=== PATIENT | female | born 1970 | race African-American/Black ===

== ENCOUNTER 2016-10-29 16:36 | Emergency (ER) | payer MEDICAID ==
[~2016-10-29] VITALS: Ht 170.2 cm; Wt 65.8 kg
[~2016-10-29 16:36] MED LIST: ALBUTEROL SULF8.5 GM INH; ALPRAZOLAM0.25 MG ORAL; ALPRAZOLAM0.5 MG PO; AZITHROMYCIN250 MG PO; GABAPENTIN100 MG ORAL; IBUPROFEN600 MG ORAL; MEDROL DOSEPAK4 MG ORAL; NKM; OFLOXACIN5 ML OT; TRAMADOL HCL50 MG ORAL
[2016-10-29 16:50] VITALS: BP 127/87
[2016-10-29] MEDS ORDERED: ROBAXIN-750750 MG PO (17:14)
[2016-10-29] MEDS ORDERED: IBUPROFEN600 MG ORAL (17:14)
[2016-10-29] MEDS ORDERED: CORTISPORIN EAR10 ML LEFT EAR (17:21)
[2016-10-29 17:26] VITALS: BP 131/88
--- NOTE | 2016-10-29 21:56 | Emergency Room Report ---
History of Present Illness General Chief Complaint: Pain Source: Patient Present Illness HPI The patient is a 46-year-old female presenting with left rib pain which began 2 days prior. The patient states that she was reaching for an object and felt a pulling sensation around the left lower ribs. Pain is described as a 10 out of 10 sharp sensation it is worse with movement such as twisting and reaching with the left hand. Patient denies any prior injury to this area. Pain does not radiate. The patient has tried Motrin at home no relief. Patient denies any other symptoms including hemoptysis, chest pain, shortness of breath, diaphoresis The patient also complains of left ear pain which began 2 days prior. This pain is described as a sharp 10 out of 10 which is intermittent. No radiating pain. Pain worse with touch. Patient denies any changes in hearing or discharge. Allergies: Coded Allergies: No Known Allergies (Unverified , 10/29/16) Patient History Past Medical History: see triage record Pertinent Family History: none Last Menstrual Period: full hysterectomy Reviewed Nursing Documentation: PMH: Agreed, PSxH: Agreed Nursing Documentation-PMH Past Medical History: No Stated History Hx Cardiac Problems: No - full hysterectomy Review of Systems All Other Systems: negative except mentioned in HPI Physical Exam Vital Signs Date Time Temp Pulse Resp B/P Pulse Ox O2 Delivery O2 Flow Rate FiO2 10/29/16 16:50 98.1 61 18 127/87 98 Room Air Sp02 EP Interpretation: reviewed, normal General Appearance: no apparent distress, alert, GCS 15, non-toxic Head: normocephalic, atraumatic Eyes: bilateral eye PERRL, bilateral eye normal inspection ENT: hearing grossly normal, normal pharynx, normal voice, other - Left external auditory canal is erythematous. Tenderness to palpation over the tragus Neck: full range of motion, supple/symm/no masses Respiratory: chest non-tender, lungs clear, normal breath sounds, no accessory muscle use, no wheezing, speaking full sentences Cardiovascular #1: regular rate, rhythm, no edema Gastrointestinal: normal bowel sounds, non tender, soft, non-distended, no guarding, no rebound Musculoskeletal: back normal, gait/station normal, normal range of motion, tender - There is tenderness to palpation over the left anterior mid intercostal muscles Neurologic: alert, oriented x3, responsive, motor strength/tone normal, sensory intact, speech normal Psychiatric: judgement/insight normal, memory normal, mood/affect normal, no suicidal/homicidal ideation Skin: normal color, no rash, warm/dry, well hydrated Lymphatic: no adenopathy Medical Decision Making PA Attestation Dr. Lobo is my supervising physician. Patient management was discussed with my supervising physician Diagnostic Impression: Primary Impression: Otitis externa of left ear Additional Impression: Muscle strain ER Course The patient is a 46-year-old female presenting with left rib pain which began 2 days prior. Ddx considered include but not limited to sprain/strain, fracture, contusion, muscle spasm Differential diagnosis include but not limited to otitis externa, otitis media, mastoiditis, sinusitis, pharyngitis Physical exam: Vitals within normal limits. No apparent distress HEENT: There is tenderness to palpation over the left tragus. External auditory canal is erythematous. Tympanic membrane is nonerythematous. No bulging There is tenderness to palpation over the left anterior mid intercostal muscles Normal breath sounds. No obvious deformity. No ecchymosis The patient will be discharged home with a prescription for Motrin and Robaxin. Cortisporin will be given for otitis externa. ER precautions are given Last Vital Signs Date Time Temp Pulse Resp B/P Pulse Ox O2 Delivery O2 Flow Rate FiO2 10/29/16 17:26 68 16 131/88 100 Room Air 10/29/16 16:50 98.1 Status: improved Disposition: HOME, SELF-CARE Condition: Improved Scripts Neomycin/Polymyxin B Sulf/Hc* (CORTISPORIN EAR SOLUTION*) 10 Ml Solution 4 DROP LEFT EAR QID, #10 ML 0 Refills Prov: TERZIAN,LUIS A P.A. 10/29/16 Methocarbamol* (ROBAXIN-750*) 750 Mg Tablet 750 MG PO TID, #21 TAB 0 Refills Prov: TERZIAN,LUIS A P.A. 10/29/16 Ibuprofen* (MOTRIN*) 600 Mg Tablet 600 MG ORAL Q8H Y for For Pain, #30 TAB 0 Refills Prov: TERZIAN,LUIS A P.A. 10/29/16 Referrals: [facility],REFERRING (PCP) Patient Instructions: Muscle Strain Additional Instructions: I discussed my findings with the patient. All questions and concerns have been answered. Treatment and medication compliance have been addressed. I advised the patient that they need to follow up with PMD in 3-5 days. Return to ED if pain remains or worsens, numbness or tingling occurs, new rash is noticed, fever is noticed, or if needed for any reason. Patient verbalized understanding of discharge instructions. LUIS A CARTER Oct 29, 2016 21:56
== END 2016-10-29 17:26 | disposition home or self-care (01) ==
LOC: EMR 17:20
DX: T14.8 Other injury of unspecified body region (principal); H60.92 Unspecified otitis externa, left ear; Z90.710 Acquired absence of both cervix and uterus; X58.XXXA Exposure to other specified factors, initial encounter; Y92.9 Unspecified place or not applicable; Y99.8 Other external cause status
CPT/HCPCS: 99284

== ENCOUNTER 2016-11-03 07:23 | Emergency (ER) | payer MEDICAID ==
[~2016-11-03] VITALS: Ht 170.2 cm; Wt 66.2 kg
[~2016-11-03 07:23] MED LIST changes: +CORTISPORIN EAR10 ML LEFT EAR; +ROBAXIN-750750 MG PO
[2016-11-03 07:45] VITALS: BP 131/95
--- NOTE | 2016-11-03 07:53 | Emergency Room Report ---
History of Present Illness General Chief Complaint: Pain Source: Patient Present Illness HPI Patient is a 46-year-old female presented after increased lessened chest pain. Patient reports having sharp pain to her left-sided chest worse with movement. Patient's that this began after a injury while reaching for an object while leaning up against the center console. Patient denied any other trauma. She denied any recent fever. She had previous earache which has since resolved. As she reports having somewhat worse chest pain. She reports that the the medications that she previous described as had been making her feel nauseated. Allergies: Coded Allergies: No Known Allergies (Unverified , 10/29/16) Patient History Past Medical History: see triage record Last Menstrual Period: hysterectomy Reviewed Nursing Documentation: PMH: Agreed, PSxH: Agreed Nursing Documentation-PMH Past Medical History: No Stated History Hx Cardiac Problems: No - full hysterectomy Review of Systems All Other Systems: negative except mentioned in HPI Physical Exam Vital Signs Date Time Temp Pulse Resp B/P Pulse Ox O2 Delivery O2 Flow Rate FiO2 11/03/16 07:33 97.9 79 20 131/95 100 Room Air Sp02 EP Interpretation: reviewed, normal General Appearance: normal inspection, well appearing, no apparent distress, alert, GCS 15, thin Head: atraumatic ENT: normal ENT inspection, hearing grossly normal, normal voice Neck: normal inspection, full range of motion, supple, no bony tend Respiratory: normal inspection, lungs clear, normal breath sounds, no respiratory distress, no retraction, no wheezing Cardiovascular #1: regular rate, rhythm, no edema Gastrointestinal: normal inspection, normal bowel sounds, non tender, soft, no guarding, no hernia Genitourinary: no CVA tenderness Musculoskeletal: normal inspection, back normal, normal range of motion Neurologic: normal inspection, alert, oriented x3, responsive, deflash and wash operator III-XII nml as tested, motor strength/tone normal, speech normal Psychiatric: normal inspection, judgement/insight normal, mood/affect normal Skin: normal inspection, normal color, no rash Medical Decision Making Diagnostic Impression: Primary Impression: Chest pain Additional Impression: Atypical chest pain ER Course Patient presented for chest pain.Differential diagnosis included but was not limited to acute coronary syndrome, pulmonary embolism, pneumonia, aortic dissection, shingles, pneumothorax, aortic dissection, esophageal rupture, pericarditis. Patient's benign exam and does not appear to require any further laboratory testing at this time. Patient stated that she felt a crack to her chest and for that reason the x-ray imaging of the left chest is ordered. This appears to be a muscular skeletal issue.CT of the chest was ordered due to the patient having some laboratory testing. A d-dimer was noted be elevated. The patient's white blood count was also noted be minimally elevated. The patient was given pain medications. CT the chest read by radiology showed no evidence of pulmonary embolism or pneumonia. Patient was advised followup with her primary care physician.EKG interpreted by me showed normal sinus rhythm without acute ST or T wave changes. There were nonspecific lateral changes. The patient was advised that she would need further outpatient testing with her primary care physician.The patient is advised to follow up with primary care doctor in 2-3 days. Patient is advised to return if any worsening condition or if any changes in status that are concerning. Labs Test 11/03/16 08:20 White Blood Count 11.2 K/UL (4.8-10.8) Red Blood Count 4.79 M/UL (4.20-5.40) Hemoglobin 15.4 G/DL (12.0-16.0) Hematocrit 45.2 % (37.0-47.0) Mean Corpuscular Volume 95 FL (80-99) Mean Corpuscular Hemoglobin 32.1 PG (27.0-31.0) Mean Corpuscular Hemoglobin Concent 34.0 G/DL (32.0-36.0) Red Cell Distribution Width 11.2 % (11.6-14.8) Platelet Count 289 K/UL (150-450) Mean Platelet Volume 6.4 FL (6.5-10.1) Neutrophils (%) (Auto) 77.0 % (45.0-75.0) Lymphocytes (%) (Auto) 16.1 % (20.0-45.0) Monocytes (%) (Auto) 5.0 % (1.0-10.0) Eosinophils (%) (Auto) 1.0 % (0.0-3.0) Basophils (%) (Auto) 0.9 % (0.0-2.0) D-Dimer 636 ng/mL (<500) Sodium Level 143 mEQ/L (135-145) Potassium Level 4.2 mEQ/L (3.4-4.9) Chloride Level 103 mEQ/L (98-107) Carbon Dioxide Level 25 mEQ/L (20-30) Anion Gap 15 (5-15) Blood Urea Nitrogen 9 mg/dL (7-23) Creatinine 0.7 mg/dL (0.5-0.9) Estimat Glomerular Filtration Rate > 60 mL/min (>60) Glucose Level 98 mg/dL (74-106) Calcium Level 9.9 mg/dL (8.6-10.2) Total Bilirubin 0.2 mg/dL (0.0-1.2) Aspartate Amino Transf (AST/SGOT) 15 U/L (5-40) Alanine Aminotransferase (ALT/SGPT) 10 U/L (3-33) Alkaline Phosphatase 69 U/L (35-104) Total Creatine Kinase 53 U/L (26-140) Creatine Kinase MB < 1.5 ng/mL (< 3.8) Creatine Kinase MB Relative Index Troponin I < 0.30 ng/mL (<=0.30) Total Protein 7.4 g/dL (6.6-8.7) Albumin 4.4 g/dL (3.5-5.2) Globulin 3.0 g/dL Albumin/Globulin Ratio 1.4 (1.0-2.7) EKG Diagnostic Results Rate: normal Rhythm: NSR ST Segments: no acute changes ASA given to the pt in ED: Yes Rhythm Strip Diag. Results EP Interpretation: yes Rhythm: NSR, no PVC's, no ectopy Chest X-Ray Diagnostic Results EP Interpretation: Yes Findings: no consolidation, no effusion, no pneumothorax, no acute cardiopulmonary disease Number of Views: 1 Last Vital Signs Date Time Temp Pulse Resp B/P Pulse Ox O2 Delivery O2 Flow Rate FiO2 11/03/16 07:45 97.9 20 131/95 100 Room Air 11/03/16 07:33 79 Status: unchanged Disposition: HOME, SELF-CARE Condition: Stable Scripts Diazepam* (VALIUM*) 5 Mg Tablet 5 MG ORAL TID Y for spasm, #15 TAB 0 Refills Prov: Giovani Sommers 11/03/16 Referrals: [facility],REFERRING (PCP) Giovani Sommers Nov 03, 2016 07:53
[2016-11-03] MEDS ORDERED: Ketorolac 60mg Inj IM ONE (08:00)
[2016-11-03 08:30] LABS: BASOPHILS % (AUTO) 0.9 % (0.0-2.0); LYMPHOCYTES % (AUTO) 16.1 % (20.0-45.0); MEAN CORPUSCULAR HEMOGLOBIN 32.1 PG (27.0-31.0); MEAN CORPUSCULAR VOLUME 95 FL (80-99); MEAN PLATELET VOLUME 6.4 FL (6.5-10.1); PLATELET COUNT 289 K/UL (150-450); RED BLOOD COUNT 4.79 M/UL (4.20-5.40); RED CELL DISTRIBUTION WIDTH 11.2 % (11.6-14.8); WHITE BLOOD COUNT 11.2 K/UL (4.8-10.8)
[2016-11-03 08:45] LABS: TROPONIN I < 0.30 ng/mL (<=0.30)
[2016-11-03 08:48] VITALS: BP 150/111
[2016-11-03 08:49] LABS: ALANINE AMINOTRANSFERASE 10 U/L (3-33); ALBUMIN/GLOBULIN RATIO 1.4 (1.0-2.7); ANION GAP 15 (5-15); ASPARTATE AMINO TRANSFERASE 15 U/L (5-40); CALCIUM 9.9 mg/dL (8.6-10.2); CARBON DIOXIDE 25 mEQ/L (20-30); CHLORIDE 103 mEQ/L (98-107); CREATININE 0.7 mg/dL (0.5-0.9); GLOMERULAR FILTRATION RATE > 60 mL/min (>60); HEMOLYSIS 5; POTASSIUM 4.2 mEQ/L (3.4-4.9); SODIUM 143 mEQ/L (135-145); TOTAL PROTEIN 7.4 g/dL (6.6-8.7)
[2016-11-03 09:09] LABS: CKMB < 1.5 ng/mL (< 3.8)
[2016-11-03 09:15] VITALS: BP 138/92
--- NOTE | 2016-11-03 10:32 | Diagnostic Imaging Report ---
Indications: Left-sided chest pain for one week Technique: Continuous helical CT imaging of the thorax was performed with automatic exposure control, following bolus intravenous administration of nonionic iodine contrast, on a Siemens sensation [address] scanner. Axial images reconstructed at 3 mm slice thickness and 1.5 mm interval. Coronal and sagittal images were reconstructed at 3 mm slice thickness. Coronal and sagittal two-dimensional maximum intensity projection and three-dimensional volume-rendered images were reconstructed on a stand alone workstation. CTDI volume(s): 13, 38, 15 mGy Total DLP: 579 mGy-cm Findings: Comparison: None The main pulmonary artery, right and left pulmonary arteries, and pulmonary artery branches to the level of third order branching are patent and well-opacified. No intraluminal filling defects are demonstrated. Thoracic aorta and great vessels are patent and well-opacified with no significant plaquing, normal in caliber and configuration. No evidence of aneurysm, dissection, or leak. Heart normal size. No pericardial abnormality. No mediastinal or hilar enlarged lymph nodes, other abnormal mass or fluid collection. Lungs normally, symmetrically inflated and clear. No pleural abnormality. Bilateral breast implants, intact. Chest wall soft tissues otherwise nonfocal. Some retrograde opacification of distended inferior vena cava and hepatic veins. Remainder of imaged upper abdominal anatomy unremarkable. Small osteophytes scattered throughout thoracic spine. No fracture or focal skeletal lesion identified. IMPRESSION: No evidence of pulmonary embolism or other significant acute thoracic pathology Suggestion of elevated right heart pressure Previous bilateral augmentation mammoplasty, implants intact
[2016-11-03] MEDS ORDERED: VALIUM5 MG ORAL (10:38)
[2016-11-03 11:00] VITALS: BP 130/80
--- NOTE | 2016-11-21 14:16 | Cardiology Report ---
APPROVED REPORT EKG Measurement Heart [id number] Normal sinus rhythm with sinus arrhythmia Possible Left atrial enlargement Nonspecific T wave abnormality Abnormal ECG
== END 2016-11-03 11:08 | disposition home or self-care (01) ==
LOC: EMR 07:41
DX: R07.89 Other chest pain (principal); Z90.710 Acquired absence of both cervix and uterus
CPT/HCPCS: 36415; 71275; 80053; 82550; 82553; 84484; 85025; 85379; 85651; 93005; 96372; 99284; Q9967

== ENCOUNTER 2017-06-13 16:46 | Emergency (ER) | payer MEDICAID ==
[~2017-06-13] VITALS: Ht 170.2 cm; Wt 59.0 kg
[~2017-06-13 16:46] MED LIST changes: +VALIUM5 MG ORAL
[2017-06-13 17:13] VITALS: BP 147/93
[2017-06-13 18:01] LABS: APPEARANCE,URINE CLEAR; KETONES,URINE NEGATIVE (NEGATIVE); LEUKOCYTE ESTERASE ,URINE 3+ (NEGATIVE); NITRITE,URINE NEGATIVE (NEGATIVE); PH,URINE 6 (4.5-8.0); PROTEIN,URINE NEGATIVE (NEGATIVE); UROBILINOGEN,URINE NORMAL MG/DL (0.0-1.0)
[2017-06-13 18:10] LABS: BACTERIA,URINE FEW /HPF; SQUAMOUS EPITHELIAL CELL,UR MODERATE /LPF (NONE/OCC)
--- NOTE | 2017-06-13 19:00 | Emergency Room Report ---
History of Present Illness General Chief Complaint: Vaginal Source: Patient Present Illness HPI 47 YO Female presents to the ED c/O Dysuria with mild increase in order x3 days. Patient reports some recent unprotected intercourse. She states she is currently going through a divorce and questions the monogamy of her relationship. She would like to be treated for STDs as well as tested. Patient denies abdominal pain, fevers, chills, swollen tender lymph nodes or lesions in the vaginal area. Patient denies history of STDs however she states that after having total hysterectomy she did have increased frequency of yeast infections. Patient denies recent antibiotic use. Denies CP, Palpitations, LOC , AMS, dizziness, Changes in Vision, Sensation, paresthesias, or a sudden severe headache. Allergies: Coded Allergies: No Known Allergies (Unverified , 10/29/16) Patient History Past Medical History: see triage record Past Surgical History: none Pertinent Family History: none Last Menstrual Period: hysterectomy 2004 complete Now: No Immunizations: UTD Reviewed Nursing Documentation: PMH: Agreed, PSxH: Agreed Nursing Documentation-PMH Past Medical History: No History, Except For Hx Cardiac Problems: No - full hysterectomy Review of Systems All Other Systems: negative except mentioned in HPI Physical Exam Vital Signs Date Time Temp Pulse Resp B/P (MAP) Pulse Ox O2 Delivery O2 Flow Rate FiO2 06/13/17 17:03 98.1 63 16 147/93 98 Room Air Sp02 EP Interpretation: reviewed, normal General Appearance: no apparent distress, alert, GCS 15, non-toxic Head: normocephalic, atraumatic Eyes: bilateral eye normal inspection, bilateral eye PERRL ENT: hearing grossly normal, normal voice Neck: full range of motion, supple/symm/no masses Respiratory: lungs clear, normal breath sounds, speaking full sentences Cardiovascular #1: regular rate, rhythm Gastrointestinal: normal bowel sounds, non tender, soft, no guarding, no rebound Rectal: deferred Genitourinary: normal inspection, no CVA tenderness, cervix normal, ext genitalia/vag normal, urethra normal, other - yellow green thin milky d/c noted in the vaginal vault with odor present, no CMT, no visible lesions. Musculoskeletal: back normal, gait/station normal, normal range of motion, non- tender Neurologic: alert, oriented x3, responsive, motor strength/tone normal, sensory intact, speech normal Psychiatric: mood/affect normal Skin: normal color, no rash, warm/dry, well hydrated Lymphatic: no adenopathy Medical Decision Making PA Attestation Dr. Sommers is my supervising Physician whom patient management has been discussed with. Diagnostic Impression: Primary Impression: Bacterial vaginosis Additional Impression: UTI (urinary tract infection) Qualified Codes: N30.00 - Acute cystitis without hematuria ER Course 47 YO Female presents to the ED c/O Dysuria with mild increase in order x3 days. Patient reports some recent unprotected intercourse. She states she is currently going through a divorce and questions the monogamy of her relationship. She would like to be treated for STDs as well as tested. Patient denies abdominal pain, fevers, chills, swollen tender lymph nodes or lesions in the vaginal area. Patient denies history of STDs however she states that after having total hysterectomy she did have increased frequency of yeast infections. Patient denies recent antibiotic use. Denies CP, Palpitations, LOC , AMS, dizziness, Changes in Vision, Sensation, paresthesias, or a sudden severe headache. Ddx considered but are not limited to UTi , STI, G & C, trichomonas, Vaginitis , cervicitis, bartholins gland cyst or cellulitis. Vital signs: are WNL, pt. is afebrile H&PE are most consistent with vaginitis ORDERS: - UA:elevated WBC, Leuks in the presence of bacteria consistent with UTI -[place]: few clue, no trich , no yeast. * URINE G & C: Pending ED INTERVENTIONS: -250mg Rocephin IM DISCHARGE: At this time pt. is stable for d/c to home. Will provide printed patient care instructions, and any necessary prescriptions. Care plan and follow up instructions have been discussed with the patient prior to discharge. Labs Test 06/13/17 17:30 Urine Color Pale yellow Urine Appearance Clear Urine pH 6 (4.5-8.0) Urine Specific [place] 1.015 (1.005-1.035) Urine Protein Negative (NEGATIVE) Urine Glucose (UA) Negative (NEGATIVE) Urine Ketones Negative (NEGATIVE) Urine Occult Blood 3+ (NEGATIVE) Urine Nitrite Negative (NEGATIVE) Urine Bilirubin Negative (NEGATIVE) Urine Urobilinogen Normal MG/DL (0.0-1.0) Urine Leukocyte Esterase 3+ (NEGATIVE) Urine RBC 2-4 /HPF (0 - 2) Urine WBC 5-10 /HPF (0 - 2) Urine Squamous Epithelial Cells Moderate /LPF (NONE/OCC) Urine Bacteria Few /HPF (NONE) Last Vital Signs Date Time Temp Pulse Resp B/P (MAP) Pulse Ox O2 Delivery O2 Flow Rate FiO2 06/13/17 17:13 16 147/93 98 Room Air 06/13/17 17:03 98.1 63 Disposition: HOME, SELF-CARE Condition: Stable Scripts Doxycycline Hyclate* (VIBRAMYCIN*) 100 Mg Capsule 100 MG ORAL EVERY 12 HOURS for 7 Days, #14 CAP 0 Refills Prov: Arleth Ramos.A. 06/13/17 Fluconazole (FLUCONAZOLE) 100 Mg Tablet 100 MG ORAL DAILY, #2 TAB 0 Refills Prov: Arleth Ramos.A. 06/13/17 Metronidazole* (FLAGYL*) 500 Mg Tablet 500 MG ORAL BID for 7 Days, #14 TAB 0 Refills Prov: Arleth Ramos.A. 06/13/17 Nitrofurantoin Monohyd/M-Cryst* (MACROBID 100 MG*) 100 Mg Capsule 100 MG ORAL EVERY 12 HOURS for 5 Days, #10 CAP Prov: Arleth Ramos.A. 06/13/17 Referrals: [facility],REFERRING (PCP) Patient Instructions: Bacterial Vaginosis, [id number], Urinary Tract Infection, [id number] Additional Instructions: Take medications as directed. ! Do not drink alcohol while taking Flagyl/ Metronidazole as this will cause a skin reaction. Follow up with a Primary Care Provider in 3-5 days, even if your symptoms have resolved. --Please review list of primary care clinics, if you do not already have a primary care provider Please allow up to 1 week for us to receive the results for the G & C testing. If you do not hear from us by then, that means your results were negative. Return sooner to ED if new symptoms occur, or current symptoms become worse. - Please note that this Emergency Department Report was dictated using [employer] specialist technology software, occasionally this can lead to erroneous entry secondary to interpretation by the dictation equipment. Arleth Ramos Jun 13, 2017 19:00
[2017-06-13] MEDS ORDERED: NITROFURANTOIN100 M2 ORAL ×2 (19:02→19:20)
[2017-06-13] MEDS ORDERED: METRONIDAZOLE500 MG ORAL ×2 (19:02→19:20)
[2017-06-13] MEDS ORDERED: FLUCONAZOLE100 MG ORAL ×2 (19:02→19:20)
[2017-06-13] MEDS ORDERED: VIBRAMYCIN100 MG ORAL ×2 (19:16→19:20)
[2017-06-13 19:20] VITALS: BP 142/82
[2017-06-13 19:25] VITALS: BP 142/82
== END 2017-06-13 19:25 | disposition home or self-care (01) ==
LOC: EMR 17:18
DX: N76.0 Acute vaginitis (principal); N39.0 Urinary tract infection, site not specified; R30.0 Dysuria; Z90.710 Acquired absence of both cervix and uterus
CPT/HCPCS: 81003; 87210; 87491; 87590; 96372; 99284; J0696

== ENCOUNTER 2017-09-22 09:02 | Emergency (ER) | payer MEDICAID ==
[~2017-09-22] VITALS: Ht 170.2 cm; Wt 58.5 kg
[~2017-09-22 09:02] MED LIST changes: +FLUCONAZOLE100 MG ORAL; +METRONIDAZOLE500 MG ORAL; +NITROFURANTOIN100 M2 ORAL; +VIBRAMYCIN100 MG ORAL
[2017-09-22] MEDS ORDERED: BACTRIM DS TAB1 EAC1 ORAL (10:17)
[2017-09-22] MEDS ORDERED: ATIVAN0.5 MG ORAL (10:17)
[2017-09-22 10:28] VITALS: BP 125/86
--- NOTE | 2017-09-22 12:31 | Emergency Room Report ---
History of Present Illness General Chief Complaint: General Complaint Source: Patient, Medical Record Present Illness HPI 47-year-old female walks in with chief complaint of 2-3 days of palpitations Denies chest pain, shortness of breath, abdominal pain denies fever chills or cough States palpitations occur intermittently when she's having anxiety or stress States under a lot of anxiety lately do to having return to school, and uncertainty over her marriage Patient is smoker however denies drug use or alcohol abuse. States she has not been able to eat well recently, does not exercise, is very few outlets for stress reduction. Denies history of CAD risk factors, oral control. Or history of PE in herself her family endorses intermittent dysuria - states she was here recently and treated for both UTI and being BV. Received Macrobid here with Flagyl. States she went to [facility] and was given Bactrim for continued dysuria, which she also completed. Allergies: Coded Allergies: No Known Allergies (Unverified , 10/29/16) Patient History Past Medical History: none Past Surgical History: none Pertinent Family History: none Social History: Denies: smoking, alcohol use, drug use Last Menstrual Period: 2004 Now: No Immunizations: UTD Reviewed Nursing Documentation: PMH: Agreed, PSxH: Agreed Nursing Documentation-PMH Past Medical History: No History, Except For Hx Cardiac Problems: No - full hysterectomy Review of Systems All Other Systems: negative except mentioned in HPI Physical Exam Vital Signs Date Time Temp Pulse Resp B/P (MAP) Pulse Ox O2 Delivery O2 Flow Rate FiO2 09/22/17 09:06 98.1 84 18 134/94 96 Room Air Sp02 EP Interpretation: reviewed, normal General Appearance: normal inspection, well appearing, no apparent distress, alert, GCS 15, non-toxic, thin, other - anxious appearing, tearful Head: normocephalic, atraumatic Eyes: bilateral eye PERRL, bilateral eye EOMI ENT: normal ENT inspection, hearing grossly normal, normal pharynx, no angioedema, normal voice, TMs + canals normal, uvula midline, moist mucus membranes Neck: normal inspection, full range of motion, supple, thyroid normal, no meningismus, no bony tend Respiratory: normal inspection, lungs clear, normal breath sounds, no rhonchi, no respiratory distress, no retraction, no accessory muscle use, no wheezing, speaking full sentences Cardiovascular #1: regular rate, rhythm, no edema, no JVD, normal capillary refill Gastrointestinal: normal inspection, normal bowel sounds, non tender, soft, no mass, no peritonitis, non-distended, no guarding, no hernia, no pulsatile mass Genitourinary: no CVA tenderness Musculoskeletal: normal inspection, back normal, normal range of motion, no calf tenderness, pelvis stable, Saray's Sign negative Neurologic: normal inspection, alert, oriented x3, responsive, sales solutions representative III-XII nml as tested, motor strength/tone normal, cerebellar normal, normal gait, speech normal Psychiatric: normal inspection, judgement/insight normal, mood/affect normal, no suicidal/homicidal ideation, no delusions Skin: normal inspection, normal color, no rash Lymphatic: normal inspection, no adenopathy Medical Decision Making Diagnostic Impression: Primary Impression: Dysuria Additional Impression: Anxiety ER Course 47-year-old female with symptoms consistent with anxiety due to known stressors Signs stable, afebrile ECG is nonischemic, she has a short [place] segment however no upsloping QRS to suggest WPW. Patient's urine toxicology positive for marijuana and benzos She denies current use of benzos but had been taking Valium recently for muscle relaxer I sent a urine culture and will followup with her pending the results to determine the best antibiotic for her given recurrent UTI-like symptoms We'll give short course of Ativan as needed for panic attacks, anxiety Also encouraged other non-medication ways to reduce stress including regular exercise, medication and eating well ER course: Patient has remained stable during ED stay. Disposition: Patient is to be discharged to home. Prescriptions given are ativan Patient is instructed to follow up with their primary care doctor within 5 days. Strict return precautions discussed with patient such as fever, chills, worsening/severe pain, nausea, vomiting, which may indicate severe illness. Patient verbalizes understanding and agrees with plan. Please note that this Emergency Department Report was dictated using [employer] machine operator multiple spindle technology software, occasionally this can lead to erroneous entry secondary to interpretation by the dictation equipment Last Vital Signs Date Time Temp Pulse Resp B/P (MAP) Pulse Ox O2 Delivery O2 Flow Rate FiO2 09/22/17 10:28 65 20 125/86 97 Room Air 09/22/17 10:28 98.1 Status: improved Disposition: HOME, SELF-CARE Condition: Improved Scripts Trimethoprim/Sulfamethoxazole 160/800* (BACTRIM DS TABLET*) 1 Each Tablet 1 TAB ORAL Q12H for 7 Days, #14 TAB 0 Refills Prov: WILFRED BANSAL M.D. 09/22/17 Lorazepam* (ATIVAN*) 0.5 Mg Tablet 0.5 MG ORAL BID for anxiety for 7 Days, #14 TAB Prov: WILFRED BANSAL M.D. 09/22/17 Patient Instructions: Palpitations, [id number] Additional Instructions: - Dysuria: Complete ALL Bactrim antibiotic for UTI - Anxiety/panic attacks: Take ativan 0.5mg as needed for anxiety/panic - Also try exercise, eating well, meditation - Follow up with your doctor in 2-3 days WILFRED BANSAL M.D. Sep 22, 2017 12:31
--- NOTE | 2017-10-03 17:38 | Cardiology Report ---
APPROVED REPORT EKG Measurement Heart [id number] Sinus bradycardia with short MN Nonspecific T wave abnormality Abnormal ECG
== END 2017-09-22 10:28 | disposition home or self-care (01) ==
LOC: EMR 09:24
DX: R30.0 Dysuria (principal); F41.9 Anxiety disorder, unspecified; R00.2 Palpitations; Z87.440 Personal history of urinary (tract) infections
CPT/HCPCS: 80307; 87086; 93005; 99284

== ENCOUNTER 2018-01-23 10:56 | Emergency (ER) | payer MEDICAID ==
[~2018-01-23] VITALS: Ht 170.2 cm; Wt 49.9 kg
[~2018-01-23 10:56] MED LIST changes: +ATIVAN0.5 MG ORAL; +BACTRIM DS TAB1 EAC1 ORAL
[2018-01-23 12:11] LABS: BASOPHILS % (AUTO) 1.1 % (0.0-2.0); EOSINOPHILS % (AUTO) 0.5 % (0.0-3.0); HEMATOCRIT 47.7 % (37.0-47.0); HEMOGLOBIN 16.2 G/DL (12.0-16.0); LYMPHOCYTES % (AUTO) 29.1 % (20.0-45.0); MEAN CORPUSCULAR VOLUME 94 FL (80-99); MONOCYTES % (AUTO) 6.3 % (1.0-10.0); PLATELET COUNT 279 K/UL (150-450); RED BLOOD COUNT 5.08 M/UL (4.20-5.40); RED CELL DISTRIBUTION WIDTH 10.5 % (11.6-14.8); WHITE BLOOD COUNT 7.6 K/UL (4.8-10.8)
[2018-01-23 12:28] LABS: ANION GAP 12 mmol/L (5-15); BLOOD UREA NITROGEN 10 mg/dL (7-18); CALCIUM 9.8 MG/DL (8.5-10.1); CARBON DIOXIDE 26 MMOL/L (21-32); CHLORIDE 104 MMOL/L (98-107); CREATININE 0.8 MG/DL (0.55-1.30); POTASSIUM 3.8 MMOL/L (3.5-5.1); SODIUM 142 MMOL/L (136-145)
[2018-01-23 12:41] LABS: ALANINE AMINOTRANSFERASE 20 U/L (12-78); ALBUMIN 4.4 G/DL (3.4-5.0); ALBUMIN/GLOBULIN RATIO 1.3 (1.0-2.7); ALKALINE PHOSPHATASE 65 U/L (46-116); ASPARTATE AMINO TRANSFERASE 17 U/L (15-37); BILIRUBIN,TOTAL 0.5 MG/DL (0.2-1.0); CREATINE KINASE 69 U/L (26-308)
[2018-01-23 12:57] LABS: APPEARANCE,URINE CLEAR; BILIRUBIN, URINE NEGATIVE (NEGATIVE); COLOR,URINE PALE YELLOW; GLUCOSE, URINE (UA) NEGATIVE (NEGATIVE); KETONES,URINE NEGATIVE (NEGATIVE); LEUKOCYTE ESTERASE ,URINE 1+ (NEGATIVE); NITRITE,URINE NEGATIVE (NEGATIVE); PH,URINE 5 (4.5-8.0); PROTEIN,URINE NEGATIVE (NEGATIVE); UROBILINOGEN,URINE NORMAL MG/DL (0.0-1.0)
--- NOTE | 2018-01-23 14:42 | Emergency Room Report ---
History of Present Illness General Chief Complaint: General Complaint Source: Patient, Medical Record Present Illness HPI Patient presents with uncontrolled anxiety. She's been taking Ativan last couple of days and hasn't helped. She does get approximately 3 hours of insomnia but gets adequate rest according to her. She's not been eating well. She has pain in the back of her head and also in her lower back. She has been seen for anxiety in the past. She denies SI or HI. She believes the anxiety is related to her being back from [facility]. She denies domestic violence or abuse and feels safe at home. Had thyroid testing many years ago. Post total hysterectomy many years ago. Not taking hormone replacement. No fevers, chills, NVD, dysuria, vaginal d/c. The back pain is L sided and radiates slightly down her L leg. No numbness or weakness. She rates the pain at 10/10, aching, worse with bending. She is refusing pain medicine. No blood thinners, oncologic problems, incontinence. The headache is L sided, at the junction of her neck and radiates somewhat up the side of her head. It is less than the back pain. Aching and fairly constant. CTA chest neg 11/03/16. Allergies: Coded Allergies: No Known Allergies (Unverified , 10/29/16) Patient History Past Medical History: see triage record Past Surgical History: hysterectomy, other - breast augmentation Social History: Reports: smoking, drug use - [facility] Social History Narrative raised 2 children as "single Mom", now reunited with out of [facility] Last Menstrual Period: 2004 (hysterectomy on 2004) Reviewed Nursing Documentation: PMH: Agreed; PSxH: Agreed Nursing Documentation-PMH Past Medical History: No History, Except For Hx Cardiac Problems: No - full hysterectomy Review of Systems All Other Systems: negative except mentioned in HPI Physical Exam Vital Signs Date Time Temp Pulse Resp B/P (MAP) Pulse Ox O2 Delivery O2 Flow Rate FiO2 01/23/18 11:07 98.0 72 18 142/95 96 Room Air 98.1 Sp02 EP Interpretation: reviewed, normal General Appearance: well appearing, no apparent distress, GCS 15, other - tobacco smell Head: normocephalic Eyes: bilateral eye normal inspection, bilateral eye PERRL ENT: moist mucus membranes Neck: full range of motion, supple, tender - L below head Respiratory: lungs clear, normal breath sounds Cardiovascular #1: regular rate, rhythm Cardiovascular #2: 2+ radial (R) Gastrointestinal: normal inspection, normal bowel sounds, non tender, no mass, non-distended Musculoskeletal: gait/station normal, normal range of motion, tender - L side of lumbar area Neurologic: alert, oriented x3, patient registrar III-XII nml as tested, motor strength/tone normal, DTRs symmetric, sensory intact, normal gait, speech normal Psychiatric: depressed affect - tearful, anxious Skin: normal inspection, warm/dry Medical Decision Making Diagnostic Impression: Primary Impression: Anxiety Additional Impression: Situational stress ER Course Patient presents with anxiety, headache and lower back pain. DDx: anxiety, depression, thyroid abnormality, muscle spasm, sciatica, UTI amongst others. Evaluation with labs. Patient refused analgesics. Not suicidal. No red flag signs/symptoms for back pain and headache. Labs unremarkable. EKG, no injury. Patient finally agreed to take tylenol. Some improvement. Discussed findings and suggested outside help for anxiety. Patient reluctant to seek help. Patient stable for outpatient observation and treatment. Laboratory Tests Test 01/23/18 11:45 White Blood Count 7.6 K/UL (4.8-10.8) Red Blood Count 5.08 M/UL (4.20-5.40) Hemoglobin 16.2 G/DL (12.0-16.0) H Hematocrit 47.7 % (37.0-47.0) H Mean Corpuscular Volume 94 FL (80-99) Mean Corpuscular Hemoglobin 32.0 PG (27.0-31.0) H Mean Corpuscular Hemoglobin Concent 34.0 G/DL (32.0-36.0) Red Cell Distribution Width 10.5 % (11.6-14.8) L Platelet Count 279 K/UL (150-450) Mean Platelet Volume 6.5 FL (6.5-10.1) Neutrophils (%) (Auto) 63.0 % (45.0-75.0) Lymphocytes (%) (Auto) 29.1 % (20.0-45.0) Monocytes (%) (Auto) 6.3 % (1.0-10.0) Eosinophils (%) (Auto) 0.5 % (0.0-3.0) Basophils (%) (Auto) 1.1 % (0.0-2.0) Urine Color Pale yellow Urine Appearance Clear Urine pH 5 (4.5-8.0) Urine Specific [place] 1.010 (1.005-1.035) Urine Protein Negative (NEGATIVE) Urine Glucose (UA) Negative (NEGATIVE) Urine Ketones Negative (NEGATIVE) Urine Occult Blood 4+ (NEGATIVE) H Urine Nitrite Negative (NEGATIVE) Urine Bilirubin Negative (NEGATIVE) Urine Urobilinogen Normal MG/DL (0.0-1.0) Urine Leukocyte Esterase 1+ (NEGATIVE) H Urine RBC 2-4 /HPF (0 - 2) H Urine WBC 2-4 /HPF (0 - 2) Urine Squamous Epithelial Cells Few /LPF (NONE/OCC) Urine Bacteria Few /HPF (NONE) Sodium Level 142 MMOL/L (136-145) Potassium Level 3.8 MMOL/L (3.5-5.1) Chloride Level 104 MMOL/L (98-107) Carbon Dioxide Level 26 MMOL/L (21-32) Anion Gap 12 mmol/L (5-15) Blood Urea Nitrogen 10 mg/dL (7-18) Creatinine 0.8 MG/DL (0.55-1.30) Estimate Glomerular Filtration Rate > 60 mL/min (>60) Glucose Level 121 MG/DL (74-106) H Calcium Level 9.8 MG/DL (8.5-10.1) Total Bilirubin 0.5 MG/DL (0.2-1.0) Aspartate Amino Transferase (AST) 17 U/L (15-37) Alanine Aminotransferase (ALT) 20 U/L (12-78) Alkaline Phosphatase 65 U/L (46-116) Total Creatine Kinase 69 U/L (26-308) Troponin I 0.000 ng/mL (0.000-0.056) Total Protein 7.9 G/DL (6.4-8.2) Albumin 4.4 G/DL (3.4-5.0) Globulin 3.5 g/dL Albumin/Globulin Ratio 1.3 (1.0-2.7) Thyroid Stimulating Hormone (TSH) 0.563 uiU/mL (0.358-3.740) Salicylates Level 5.4 ug/mL (2.8-20) Urine Opiates Screen Negative (NEGATIVE) Acetaminophen Level < 2 MCG/ML (10-30) L Urine Barbiturates Screen Negative (NEGATIVE) Phencyclidine (PCP) Screen Negative (NEGATIVE) Urine Amphetamines Screen Negative (NEGATIVE) Urine Benzodiazepines Screen Positive (NEGATIVE) H Urine Cocaine Screen Negative (NEGATIVE) Urine Marijuana (THC) Screen Positive (NEGATIVE) H Serum Alcohol < 3 mg/dL EKG Diagnostic Results Rate: normal Rhythm: NSR ST Segments: no acute changes Rhythm Strip Diag. Results EP Interpretation: yes Rhythm: NSR, no PVC's, no ectopy Last Vital Signs Date Time Temp Pulse Resp B/P (MAP) Pulse Ox O2 Delivery O2 Flow Rate FiO2 01/23/18 15:53 94.2 80 18 135/90 96 Room Air 84.2 Status: improved Disposition: HOME, SELF-CARE Condition: Improved Scripts Hydroxyzine Pamoate (VISTARIL) 25 Mg Capsule 25 MG PO TID PRN for anxiety or insomnia, #10 CAP Prov: Joon Torrez M.D. 01/23/18 Lorazepam* (LORAZEPAM*) 1 Mg Tablet 1 MG ORAL THREE TIMES A DAY PRN for anxiety, #10 TAB Prov: Joon Torrez M.D. 01/23/18 Referrals: NON PHYSICIAN (PCP) Joon Torrez M.D. January 23, 2018 14:42
[2018-01-23] MEDS ORDERED: VISTARIL25 M1 PO (14:45)
[2018-01-23] MEDS ORDERED: LORAZEPAM1 MG ORAL (14:45)
[2018-01-23 15:52] VITALS: BP 135/90
[2018-01-23 15:53] VITALS: BP 135/90
--- NOTE | 2018-01-25 22:30 | Cardiology Report ---
APPROVED REPORT EKG Measurement Heart [id number] Normal sinus rhythm with sinus arrhythmia Nonspecific T wave abnormality Abnormal ECG
== END 2018-01-23 15:54 | disposition home or self-care (01) ==
LOC: EMR 11:16
DX: F41.9 Anxiety disorder, unspecified (principal); F43.8 Other reactions to severe stress
CPT/HCPCS: 36415; 80053; 80307; 80329; 81003; 82550; 84443; 84484; 85025; 93005; 99283

== ENCOUNTER 2018-06-06 13:16 | Emergency (ER) | payer MEDICAID ==
[~2018-06-06] VITALS: Ht 170.2 cm; Wt 54.4 kg
[~2018-06-06 13:16] MED LIST changes: +LORAZEPAM1 MG ORAL; +VISTARIL25 M1 PO
[2018-06-06 13:39] VITALS: BP 124/58
--- NOTE | 2018-06-06 13:57 | Emergency Room Report ---
History of Present Illness General Chief Complaint: Pain Present Illness HPI 48-year-old female presents to the emergency department complaining of localized 10 out of 10 in severity pain, tenderness and swelling to the base of the right great toe status post stubbing her toe on concrete approximately one hour prior to arrival. Pain exacerbation with weight bearing and walking. Denies falling completely to the ground, denies hitting her head, denies neck or back pain. pt. denies open wounds or bleeding. Denies numbness tingling or loss of sensation or gross motor movements of the extremities, incontinence of bowel or bladder. Denies CP, Palpitations, LOC, AMS, dizziness, Changes in Vision, weakness or a sudden severe headache. Allergies: Coded Allergies: No Known Allergies (Unverified , 10/29/16) Patient History Past Medical History: see triage record Past Surgical History: none Pertinent Family History: none Last Menstrual Period: 2004 Now: No Reviewed Nursing Documentation: PMH: Agreed; PSxH: Agreed Nursing Documentation-PMH Hx Cardiac Problems: No - full hysterectomy Review of Systems All Other Systems: negative except mentioned in HPI Physical Exam Vital Signs Date Time Temp Pulse Resp B/P (MAP) Pulse Ox O2 Delivery O2 Flow Rate FiO2 06/06/18 13:25 98.2 100 20 124/5 96 Room Air 98.2 Sp02 EP Interpretation: reviewed, normal General Appearance: no apparent distress, alert, GCS 15, non-toxic Head: normocephalic, atraumatic ENT: hearing grossly normal, normal voice Neck: full range of motion Respiratory: lungs clear, normal breath sounds, speaking full sentences Cardiovascular #1: regular rate, rhythm, normal capillary refill Musculoskeletal: back normal, normal range of motion, tender - TTP dorsally and medially to the right great toe, at the base of the great toe, and mildly on the mid-foot. Neurologic: alert, oriented x3, responsive, motor strength/tone normal, sensory intact, speech normal, grossly normal Psychiatric: judgement/insight normal Skin: normal color, no rash, warm/dry, well hydrated, other Medical Decision Making PA Attestation Dr. pichardo is my supervising Physician whom patient management has been discussed with. Diagnostic Impression: Primary Impression: Sprain of toe Qualified Codes: S93.509A - Unspecified sprain of unspecified toe(s), initial encounter Additional Impression: Contusion of toe of right foot Qualified Codes: S90.111A - Contusion of right great toe without damage to nail, initial encounter ER Course 48-year-old female presents to the emergency department complaining of localized 10 out of 10 in severity pain, tenderness and swelling to the base of the right great toe status post stubbing her toe on concrete approximately one hour prior to arrival. Pain exacerbation with weight bearing and walking. Denies falling completely to the ground, denies hitting her head, denies neck or back pain. pt. denies open wounds or bleeding. Denies numbness tingling or loss of sensation or gross motor movements of the extremities, incontinence of bowel or bladder. Denies CP, Palpitations, LOC, AMS, dizziness, Changes in Vision, weakness or a sudden severe headache. Ddx considered but are not limited to Fracture, dislocation, contusion, Sprain/ Strain/Spasm. Vital signs: are WNL, pt. is afebrile H&PE are most consistent with musculoskeletal injury will perform imaging to r/ o fractures/dislocations. ORDERS: - X-ray Right Foot 3-views - negative for fx, Dislocation, or significant soft tissue injury, per preliminary read in ED, and signed by BRADLEY Ramos , my supervising physician has reviewed, and agrees with my interpretation. ED INTERVENTIONS: - Tylenol PO -Pt. placed into orthopedic cast/walking hard-sole shoe -Patient is provided with crutches and instructed on their use DISCHARGE: At this time pt. is stable for d/c to home. Will provide printed patient care instructions, and any necessary prescriptions. Care plan and follow up instructions have been discussed with the patient prior to discharge. Other X-Ray Diagnostic Results Other X-Ray Diagnostic Results : X-Ray ordered: Rigth Foot # of Views/Limited Vs Complete: 3 View Indication: Pain EP Interpretation: Yes BRADLEY Xray: Interpretation reviewed, by supervising MD, and agrees with findings. Interpretation: no dislocation, no soft tissue swelling, no fractures Impression: No acute disease Electronically Signed by: This Interpretation was scribed by BRADLEY Ramos. Last Vital Signs Date Time Temp Pulse Resp B/P (MAP) Pulse Ox O2 Delivery O2 Flow Rate FiO2 06/06/18 13:39 98.2 100 20 124/58 96 Room Air 98.2 Disposition: HOME, SELF-CARE Condition: Stable Scripts Ibuprofen* (MOTRIN*) 600 Mg Tablet 600 MG ORAL THREE TIMES A DAY, #30 TAB 0 Refills Prov: Arleth Ramos 06/06/18 Referrals: NON PHYSICIAN (PCP) Additional Instructions: Take medications as directed. Follow up with a Primary Care Provider in 3-5 days, even if your symptoms have resolved. --Please review list of primary care clinics, if you do not already have a primary care provider Return sooner to ED if new symptoms occur, or current symptoms become worse. - Please note that this Emergency Department Report was dictated using [employer] attendant technology software, occasionally this can lead to erroneous entry secondary to interpretation by the dictation equipment. Arleth Ramos Jun 06, 2018 13:57
[2018-06-06] MEDS ORDERED: IBUPROFEN600 MG ORAL (14:29)
[2018-06-06 14:43] VITALS: BP 124/58
--- NOTE | 2018-06-06 14:52 | Diagnostic Imaging Report ---
Indication: Foot Pain Comparison: None Findings: 3 views of the right foot were obtained. No acute fractures, malalignment, erosions or periostitis are identified. Soft tissues are unremarkable. Impression: No acute findings.
== END 2018-06-06 14:48 | disposition home or self-care (01) ==
LOC: EMR 13:40
DX: S93.501A Unspecified sprain of right great toe, initial encounter (principal); S90.31XA Contusion of right foot, initial encounter; W22.8XXA Striking against or struck by other objects, initial encounter; Y92.89 Other specified places as the place of occurrence of the external cause
CPT/HCPCS: 99283

== ENCOUNTER 2018-10-19 16:19 | Emergency (ER) | payer MEDICAID ==
[~2018-10-19] VITALS: Ht 170.2 cm; Wt 54.4 kg
[2018-10-19 16:30] VITALS: BP 134/86
--- NOTE | 2018-10-19 16:30 | NUR ---
ED Nurse Note: PT WALKED IN TO ER TODAY FROM HOME. AOX4. PT C/O SORE THROAT AND LEFT EARACHE, 8/10 X 3 DAYS AGO. PT STATES PAIN WORSENS WITH SWALLOWING OR TALKING. PT DENIES COUGH OR FEVER.
[2018-10-19] MEDS ORDERED: TYLENOL EXTRA500 MG ORAL (16:54)
[2018-10-19] MEDS ORDERED: AMOXICILLIN500 MG ORAL (16:54)
--- NOTE | 2018-10-19 16:55 | Emergency Room Report ---
History of Present Illness General Chief Complaint: Earache Source: Patient Present Illness HPI 48-year-old female patient presents the ER complaining of sore throat and earache for the past 3 days. Reports left ear pain. Denies hearing loss. Denies use Q-tips. Denies recent swimming. Denies ear drainage. Denies fever , chest pain, shortness of breath. Reports sore throat during this time. Denies cough. Denies abdominal pain. Denies vomiting or diarrhea. States use [id number] eardrops for pain but has not had any relief of pain symptoms. Allergies: Coded Allergies: No Known Allergies (Unverified , 10/29/16) Patient History Past Medical History: see triage record Last Menstrual Period: hystrectomy Reviewed Nursing Documentation: PMH: Agreed; PSxH: Agreed Nursing Documentation-PM Past Medical History: No Stated History Hx Cardiac Problems: No - full hysterectomy Review of Systems All Other Systems: negative except mentioned in HPI Physical Exam Vital Signs Date Time Temp Pulse Resp B/P (MAP) Pulse Ox O2 Delivery O2 Flow Rate FiO2 10/19/18 16:25 98.4 81 16 140/93 97 Room Air Sp02 EP Interpretation: reviewed, normal General Appearance: well appearing, no apparent distress, alert, GCS 15, non- toxic Head: normocephalic, atraumatic Eyes: bilateral eye normal inspection, bilateral eye PERRL ENT: hearing grossly normal, normal pharynx, no angioedema, normal voice, TMs + canals normal - Right ear, uvula midline, moist mucus membranes, other - Left ear: Erythematous TM, no effusion, no erythema or edema of the ear canal, no TM perforation; tonsils removed, uvula midline, no pharyngeal erythema or exudate Neck: full range of motion, no meningismus, no bony tend Respiratory: lungs clear, normal breath sounds, no rhonchi, no respiratory distress, no accessory muscle use, no wheezing, speaking full sentences Cardiovascular #1: regular rate, rhythm, no edema Musculoskeletal: back normal, digits/nails normal, gait/station normal, normal range of motion, non-tender Neurologic: alert, oriented x3, responsive, motor strength/tone normal, sensory intact Psychiatric: mood/affect normal Skin: no rash Lymphatic: adenopathy Medical Decision Making PA Attestation Dr. Torrez is my supervising Physician whom patient management has been discussed with. Diagnostic Impression: Primary Impression: Otitis media ER Course Pt presents to ED c/o ear pain and sore throat. DDX considered but are not limited to rhinitis, sinusitis, otitis media, otitis externa, cellulitis, mastoiditis, cerumen impaction, pharyngitis, strep throat. Low suspicion for mastoiditis, no swelling or erythema noted posterior to ear, no TTP. Low suspicion for peritonsillar abscess, no neck stiffness, no hot potato voice , no stridor. VITAL SIGNS are WNL, patient is afebrile. ER COURSE: PE shows erythematous TM, likely otitis media. Will treat with abx. Physical exam shows no tonsillar swelling, no exudates, no LAD, hx of cough, no fever, low suspicion for Strep Throat per [facility] criteria. Does not require abx at this time. Patient reports feeling better following administration of medication Salt water gargles ER precautions given. Take Tylenol or Motrin for pain. DISCHARGE: -Rx provided for Azithromycin Take Tylenol and OTC medications for symptom relief; use as directed. At this time pt is stable for d/c to home. Patient is resting comfortably, in no acute disterss nontoxic appearing, talking without difficulty. Patient to take medications as instructed Will provide with patient care instructions and any necessary prescriptions. Care plan and follow-up instructions provided. Patient instructed to follow-up with primary care provider in 3 - 5 days. Patient questions asked and answered. Reports understanding and agreement to treatment plan. ER precautions given. Patient instructed to return to ER immediately for any new or worsening of symptoms including but not limited to increasing SOB, persistent fever. - Please note that this Emergency Department Report was dictated using [employer] straightener technology software, occasionally this can lead to erroneous entry secondary to interpretation by the dictation equipment. Last Vital Signs Date Time Temp Pulse Resp B/P (MAP) Pulse Ox O2 Delivery O2 Flow Rate FiO2 10/19/18 16:30 98.3 76 17 134/86 100 Room Air Status: improved Disposition: HOME, SELF-CARE Condition: Stable Scripts Amoxicillin* (AMOXIL*) 500 Mg Capsule 500 MG ORAL EVERY 8 HOURS for 7 Days, #21 CAP Prov: Jas Macias P.A. 10/19/18 Acetaminophen* (TYLENOL EXTRA STRENGTH*) 500 Mg Tablet 500 MG ORAL Q8H PRN for Prn Headache/Temp > 101, #30 TAB 0 Refills Prov: Jas Macias 10/19/18 Referrals: NOT CHOSEN IPA/MD,REFERRING (PCP) Patient Instructions: Otitis Media, Adult Additional Instructions: Followup with primary care provider in 3 -5 days. Request referral to ENT. Avoid swimming, does not use Q-tips in ear. Salt water gargles Take Tylenol for pain and fever symptoms Drink plenty of water. Take medications as directed. Patient questions asked and answered. ER precautions given, patient instructed to return to ER immediately for any new or worsening of symptoms including but not limited to intractable vomiting, difficulty breathing, inability to eat. Jas Macias Oct 19, 2018 16:55
--- NOTE | 2018-10-19 17:02 | NUR ---
ED Nurse Note: PT SITTING PEACEFULLY IN CHAIR IN NAD. AOX4. PRESCRIPTIONS AND DISCHARGE PAPERWORK EXPLAINED TO PT. PT VERBALIZES UNDERSTANDING AND ALL QUESTIONS ANSWERED. PRESCRIPTIONS AND DISCHARGE PAPERWORK GIVEN TO PT AND ID WRISTBAND REMOVED. PT WALKED OUT OF ER WITH STEADY GAIT AND ALL BELONGINGS.
[2018-10-19 17:03] VITALS: BP 128/82
== END 2018-10-19 17:04 | disposition home or self-care (01) ==
LOC: EMR 16:45
DX: H66.92 Otitis media, unspecified, left ear (principal)
CPT/HCPCS: 99282

== ENCOUNTER 2019-04-05 16:49 | Emergency (ER) | payer MEDICAID ==
[~2019-04-05] VITALS: Ht 170.2 cm; Wt 59.0 kg
[~2019-04-05 16:49] MED LIST changes: +AMOXICILLIN500 MG ORAL; +TYLENOL EXTRA500 MG ORAL
[2019-04-05 16:53] VITALS: BP 137/101
[2019-04-05] MEDS ORDERED: IBU800 MG PO (17:04)
--- NOTE | 2019-04-05 17:04 | Emergency Room Report ---
History of Present Illness General Chief Complaint: Pain Source: Patient Present Illness HPI 49-year-old female with history of sciatic pain here complaining of new onset of her sciatic pain that started yesterday. Patient denies any recent travel or sitting for prolonged hours or strenuous physical activity. Patient has taken Toradol and steroid injections in the past with relief and ibuprofen. Patient specifically indicates that she does not want any narcotics. Patient rating her pain 10 out of 10 with radiation to right foot and tingling. Pain is worse when sitting. Denies chest pain, shortness of breath, palpitation, urinary or bowel incontinence. Has not taken any medication for her pain today. Allergies: Coded Allergies: No Known Allergies (Unverified , 10/29/16) Patient History Past Medical History: see triage record Past Surgical History: unable to obtain Pertinent Family History: unable to obtain Now: No Immunizations: UTD Reviewed Nursing Documentation: PMH: Agreed; PSxH: Agreed Nursing Documentation-PMH Past Medical History: No History, Except For Hx Cardiac Problems: No - full hysterectomy Review of Systems All Other Systems: negative except mentioned in HPI Physical Exam Vital Signs Date Time Temp Pulse Resp B/P (MAP) Pulse Ox O2 Delivery O2 Flow Rate FiO2 04/05/19 16:53 98.1 90 18 137/101 (113) 97 Room Air Sp02 EP Interpretation: reviewed, normal General Appearance: normal inspection, well appearing, no apparent distress, alert, GCS 15 Head: normocephalic, atraumatic Eyes: bilateral eye normal inspection, bilateral eye PERRL ENT: normal ENT inspection, hearing grossly normal, normal pharynx, no angioedema Neck: normal inspection, supple Respiratory: normal inspection, chest non-tender, lungs clear, normal breath sounds, no rhonchi, no retraction Cardiovascular #1: normal inspection, regular rate, rhythm, no edema, no gallop , no murmur Gastrointestinal: normal inspection, non tender, soft, no mass Rectal: deferred Genitourinary: no CVA tenderness Musculoskeletal: normal inspection, back normal, digits/nails normal Neurologic: normal inspection, alert, oriented x3, responsive, net application support specialist III-XII nml as tested Psychiatric: normal inspection, judgement/insight normal, memory normal Skin: no rash, palpation normal Lymphatic: normal inspection, no adenopathy Medical Decision Making PA Attestation All diagnoses and treatment plans were reviewed and discussed with my supervising physician Dr. Henry Diagnostic Impression: Primary Impression: Sciatic leg pain ER Course 49-year-old female with history of sciatic pain here complaining of new onset of her sciatic pain that started yesterday. Patient denies any recent travel or sitting for prolonged hours or strenuous physical activity. Patient has taken Toradol and steroid injections in the past with relief and ibuprofen. Patient specifically indicates that she does not want any narcotics. Patient rating her pain 10 out of 10 with radiation to right foot and tingling. Pain is worse when sitting. Denies chest pain, shortness of breath, palpitation, urinary or bowel incontinence. Has not taken any medication for her pain today. Ddx considered but are not limited to: Sciatic pain, hip fracture, tendinitis Vital signs: are WNL, pt. is afebrile H&PE are most consistent with: Sciatic pain ORDERS: Toradol, dexamethasone, ibuprofen 800 ED INTERVENTIONS: Toradol and dexamethasone DISCHARGE: At this time pt. is stable for d/c to home. Will provide printed patient care instructions, and any necessary prescriptions. Care plan and follow up instructions have been discussed with the patient prior to discharge. Patient to follow-up with a primary care provider for physical therapy referral alternating icing heating affected area if worsening symptoms return to the emergency room Last Vital Signs Date Time Temp Pulse Resp B/P (MAP) Pulse Ox O2 Delivery O2 Flow Rate FiO2 04/05/19 16:53 98.1 90 18 137/101 97 Room Air Disposition: HOME, SELF-CARE Condition: Stable Scripts Ibuprofen (Ibu) 800 Mg Tablet 800 MG PO TID, #30 TAB Prov: Paz Klein 04/05/19 Patient Instructions: Sciatica, [id number] Additional Instructions: Take medication as directed use a heated pack on the affected area follow-up with a primary care provider for physical therapy referral Paz Klein Apr 05, 2019 17:04
[2019-04-05] MEDS ORDERED: Ketorolac 30mg Inj IM ONE (17:15)
[2019-04-05] MEDS ORDERED: Dexamethasone 20mg/5ml IM ONE (17:30)
[2019-04-05 17:47] VITALS: BP 128/90
--- NOTE | 2019-04-05 17:47 | NUR ---
ER DISCHARGE NOTE: Pt was seen due to lower back pain that radiates to her legs. Patient is cleared to be discharged per ERMD, pt is aox4, on room air, with stable vital signs. pt was given dc and prescription instructions, pt was able to verbalize understanding, pt id band removed without complications. pt is able to ambulate with steady gait. pt took all belongings.
== END 2019-04-05 17:47 | disposition home or self-care (01) ==
LOC: EMR 17:25
DX: M54.31 Sciatica, right side (principal); Z90.710 Acquired absence of both cervix and uterus
CPT/HCPCS: 96372; 99283; J1100; J1885

== ENCOUNTER 2019-10-09 15:16 | Emergency (ER) | payer MEDICAID ==
[~2019-10-09] VITALS: Ht 170.2 cm; Wt 59.0 kg
[~2019-10-09 15:16] MED LIST changes: +IBU800 MG PO
[2019-10-09 15:50] VITALS: BP 139/93
[2019-10-09] MEDS ORDERED: Ketorolac 30mg Inj IM ONE (16:00)
[2019-10-09] MEDS ORDERED: Dexamethasone 4mg/ml vial IM ONE (16:00)
[2019-10-09] MEDS ORDERED: Methocarbamol 500mg tab ORAL ONE (16:00)
--- NOTE | 2019-10-09 16:14 | Emergency Room Report ---
History of Present Illness General Chief Complaint: Back Pain-No Injury Source: Patient Present Illness HPI 49-year-old female with history of sciatic pain here complaining of sciatic pain exacerbation. Patient has an upcoming appointment with primary doctor. Has not taken medication for symptom relief. Denies fall and injury. As a walk to the patient patient is on the phone speaking medical records. Patient stops me from examining her and told her to come back. When I make, and then I will go and come back and we will will see the patient, patient reports that I have bad bedside manner because I did not wait letter for her phone conversation to be finished. Denies urinary symptoms at this time. Denies tingling numbness, saddle paresthesia, urinary or bowel incontinence Allergies: Coded Allergies: No Known Allergies (Unverified , 10/29/16) Patient History Past Medical History: see triage record Past Surgical History: none Pertinent Family History: none Last Menstrual Period: hysterectomy 2004 Now: No Immunizations: UTD Reviewed Nursing Documentation: PMH: Agreed; PSxH: Agreed Nursing Documentation-PMH Past Medical History: No History, Except For Hx Cardiac Problems: No - full hysterectomy Review of Systems All Other Systems: negative except mentioned in HPI Physical Exam Vital Signs Date Time Temp Pulse Resp B/P (MAP) Pulse Ox O2 Delivery O2 Flow Rate FiO2 10/09/19 15:32 97.9 66 17 145/98 (114) 98 Room Air Sp02 EP Interpretation: reviewed, normal General Appearance: no apparent distress, alert, GCS 15, non-toxic Head: normocephalic, atraumatic Eyes: bilateral eye normal inspection, bilateral eye PERRL ENT: hearing grossly normal, normal pharynx, no angioedema, normal voice Neck: full range of motion, supple/symm/no masses Respiratory: chest non-tender, lungs clear, normal breath sounds, no rhonchi, speaking full sentences Cardiovascular #1: regular rate, rhythm, no edema, no murmur Cardiovascular #2: 2+ dorsalis pedis (R), 2+ dorsalis pedis (L) Gastrointestinal: normal bowel sounds, non tender, soft, non-distended, no guarding, no rebound Genitourinary: no CVA tenderness Musculoskeletal: back normal, normal range of motion, digits/nails normal, no calf tenderness Neurologic: alert, motor strength/tone normal, oriented x3, sensory intact, responsive, speech normal Psychiatric: judgement/insight normal, memory normal, mood/affect normal, no suicidal/homicidal ideation Skin: no rash Lymphatic: no adenopathy Medical Decision Making PA Attestation All my diagnosis and treatment plans were reviewed ad discussed with my supervising physician Dr. Machuca Diagnostic Impression: Primary Impression: Back pain with sciatica ER Course 49-year-old female with history of sciatic pain here complaining of sciatic pain exacerbation. Patient has an upcoming appointment with primary doctor. Has not taken medication for symptom relief. Denies fall and injury. As a walk to the patient patient is on the phone speaking medical records. Patient stops me from examining her and told her to come back. When I make, and then I will go and come back and we will will see the patient, patient reports that I have bad bedside manner because I did not wait letter for her phone conversation to be finished. Denies urinary symptoms at this time. Denies tingling numbness, saddle paresthesia, urinary or bowel incontinence Ddx considered but are not limited to: Lumbar spine sprain, strain, fracture, contusion, neuropathy, sciatica Vital signs: are WNL, pt. is afebrile H&PE are most consistent with: Back pain with sciatica ORDERS: No imaging needed at this time as patient pain is chronic, prednisone, ibuprofen, Robaxin ER intervention: Dexamethasone, Toradol, Robaxin DISCHARGE: At this time pt. is stable for d/c to home. Will provide printed patient care instructions, and any necessary prescriptions. Care plan and follow up instructions have been discussed with the patient prior to discharge. Same regimen of medication was given to patient last time that she was here. Patient reported she felt improvement after. Follow-up primary care provider, MRI and physical therapy needed. If worsening symptoms return to the emergency room Last Vital Signs Date Time Temp Pulse Resp B/P (MAP) Pulse Ox O2 Delivery O2 Flow Rate FiO2 10/09/19 15:32 97.9 66 17 145/98 (114) 98 Room Air Status: improved Disposition: HOME, SELF-CARE Condition: Stable Scripts Prednisone* (PREDNISONE*) 20 Mg Tablet 40 MG ORAL DAILY for 5 Days, #10 TAB Prov: Paz Klein 10/09/19 Methocarbamol* (ROBAXIN-500*) 500 Mg Tablet 500 MG ORAL TID, #10 TAB 0 Refills Prov: Paz Klein 10/09/19 Ibuprofen (Ibu) 800 Mg Tablet 800 MG PO TID, #30 TAB Prov: Paz Klein 10/09/19 Patient Instructions: Sciatica Additional Instructions: Follow-up with primary care provider for further imaging as well as physical therapy. If worsening symptoms return to the emergency room Paz Klein Oct 09, 2019 16:14
[2019-10-09] MEDS ORDERED: ROBAXIN-500MG ORAL (16:16)
[2019-10-09] MEDS ORDERED: IBU800 MG PO (16:16)
[2019-10-09] MEDS ORDERED: PREDNISONE20 MG ORAL (16:16)
[2019-10-09 16:23] VITALS: BP 134/88
== END 2019-10-09 16:23 | disposition home or self-care (01) ==
LOC: EMR 15:45
DX: M54.30 Sciatica, unspecified side (principal); M54.9 Dorsalgia, unspecified; Z90.710 Acquired absence of both cervix and uterus
CPT/HCPCS: 96372; J1100; J1885; Z7502; 99283

== ENCOUNTER 2020-02-28 15:38 | Emergency (ER) | payer MEDICAID ==
[~2020-02-28] VITALS: Ht 170.2 cm; Wt 62.1 kg
[~2020-02-28 15:38] MED LIST changes: +PREDNISONE20 MG ORAL; +ROBAXIN-500MG ORAL
--- NOTE | 2020-02-28 15:53 | NUR ---
ED Nurse Note: Pt ambulated to ED from home d/t vomiting and watery diarrhea since 02/22/20. Per pt she had turkey taco the day before and started feeling some "stomach disturbances" the next day. Pt is AOx4, calm and cooperative, VSS, on RA, afebrile on triage. Pt denies any stomach pain as of now. Placed on bed, ERMD at bedside.
--- NOTE | 2020-02-28 15:54 | NUR ---
ED Nurse Note: Pt also complains of anxiety and stated, "I think I am having anxiety because of this stomach disturbances too".
[2020-02-28 15:56] VITALS: BP 148/123
--- NOTE | 2020-02-28 16:09 | Emergency Room Report ---
History of Present Illness General Chief Complaint: Nausea, Vomiting, and Diarrhea Source: Patient Present Illness HPI Patient presents with diarrhea that started on Sunday. She had gone to eat tacos and since that time has had loose stools. She denies any blood or melena. This morning she vomited bile. She has not been able to keep up with fluids because her sense of smell is been gone. She denies any fevers. There is no dysuria. She tried Pepto-Bismol but it did not help. She feels somewhat dizzy when she stands up. In addition the patient is complaining of anxiety. She had to convince herself to come to the emergency department to seek help. In the past she has taken alprazolam 1 mg tablets she also also had hydroxyzine in the past. No sore throat, chest pain, palpitations, dysuria, abdominal pain, shortness of breath, joint pain, rashes, headache. After her hysterectomy she states she has had hot flashes for 10 years. Although she denies chills she felt hot flashes recently. Allergies: Coded Allergies: No Known Allergies (Unverified , 10/29/16) COVID-19 Screening Contact w/high risk pt: No Recent Travel to affected area: No Experienced COVID-19 symptoms?: No COVID-19 Testing performed FIELD TALENT QUALIFICATION SPECIALIST: No Patient History Past Medical History: see triage record Past Surgical History: hysterectomy Social History: Reports: smoking, drug use - THC Social History Narrative lives by self above kids in duplex Last Menstrual Period: hysterectomy in 2004 Now: No Reviewed Nursing Documentation: PMH: Agreed; PSxH: Agreed Nursing Documentation-PMH Past Medical History: No History, Except For Hx Cardiac Problems: No - full hysterectomy Review of Systems All Other Systems: negative except mentioned in HPI Physical Exam Vital Signs Date Time Temp Pulse Resp B/P (MAP) Pulse Ox O2 Delivery O2 Flow Rate FiO2 02/28/20 15:49 98.8 100 17 148/123 (131) 100 Room Air Sp02 EP Interpretation: reviewed, normal General Appearance: well appearing, no apparent distress, GCS 15 Head: normocephalic Eyes: bilateral eye normal inspection, bilateral eye PERRL, bilateral eye EOMI ENT: moist mucus membranes - Slightly dry Neck: supple Respiratory: lungs clear, normal breath sounds Cardiovascular #1: regular rate, rhythm Cardiovascular #2: 2+ radial (R) Gastrointestinal: normal inspection, normal bowel sounds, non tender, no mass, non-distended Genitourinary: no CVA tenderness Musculoskeletal: back normal, normal range of motion, gait/station normal Neurologic: alert, oriented x3, grossly normal Psychiatric: mood/affect normal - Slightly anxious Skin: no rash, warm/dry Medical Decision Making Diagnostic Impression: Primary Impression: Gastroenteritis Additional Impressions: Anxiety Dehydration ER Course Patient presents with diarrhea since Sunday after eating tacos and then vomiting this morning with worsening anxiety. Differential includes dehydration , food poisoning, COVID-19 amongst others. Based on her physical exam she is somewhat dehydrated at this time. Her abdomen is benign. Evaluation with labs and treatment with IV hydration. CBC and CMP normal. Urinalysis with some red blood cells. Lab essentially excludes COVID-19 infection. Patient insistent on removing IV. Nausea. Tx with zofran. Discussed findings and treatment plan with patient. Discussed the need for outpatient follow-up. Patient requesting treatment for anxiety. Patient given prescription for alprazolam. Patient insisted on leaving the emergency department without other prescriptions. Patient returned to [facility] other prescriptions. Patient stable for outpatient observation and treatment. Laboratory Tests Test 02/28/20 16:15 02/28/20 17:00 White Blood Count 8.1 K/UL (4.8-10.8) Red Blood Count 4.66 M/UL (4.20-5.40) Hemoglobin 15.0 G/DL (12.0-16.0) Hematocrit 44.1 % (37.0-47.0) Mean Corpuscular Volume 95 FL (80-99) Mean Corpuscular Hemoglobin 32.1 PG (27.0-31.0) H Mean Corpuscular Hemoglobin Concent 34.0 G/DL (32.0-36.0) Red Cell Distribution Width 12.0 % (11.6-14.8) Platelet Count 310 K/UL (150-450) Mean Platelet Volume 5.5 FL (6.5-10.1) L Neutrophils (%) (Auto) 52.9 % (45.0-75.0) Lymphocytes (%) (Auto) 38.7 % (20.0-45.0) Monocytes (%) (Auto) 5.9 % (1.0-10.0) Eosinophils (%) (Auto) 1.4 % (0.0-3.0) Basophils (%) (Auto) 1.2 % (0.0-2.0) Sodium Level 141 MMOL/L (136-145) Potassium Level 3.6 MMOL/L (3.5-5.1) Chloride Level 104 MMOL/L (98-107) Carbon Dioxide Level 27 MMOL/L (21-32) Anion Gap 10 mmol/L (5-15) Blood Urea Nitrogen 11 mg/dL (7-18) Creatinine 0.9 MG/DL (0.55-1.30) Estimated Glomerular Filtration Rate > 60 mL/min (>60) Glucose Level 93 MG/DL (74-106) Calcium Level 9.4 MG/DL (8.5-10.1) Total Bilirubin 0.4 MG/DL (0.2-1.0) Aspartate Amino Transferase (AST) 16 U/L (15-37) Alanine Aminotransferase (ALT) 15 U/L (12-78) Alkaline Phosphatase 66 U/L (46-116) Total Protein 7.5 G/DL (6.4-8.2) Albumin 4.0 G/DL (3.4-5.0) Globulin 3.5 g/dL Albumin/Globulin Ratio 1.1 (1.0-2.7) Lipase 108 U/L (73-393) Urine Color Yellow Urine Appearance Clear Urine pH 5 (4.5-8.0) Urine Specific [place] 1.020 (1.005-1.035) Urine Protein Negative (NEGATIVE) Urine Glucose (UA) Negative (NEGATIVE) Urine Ketones 1+ (NEGATIVE) H Urine Blood 4+ (NEGATIVE) H Urine Nitrite Negative (NEGATIVE) Urine Bilirubin Negative (NEGATIVE) Urine Urobilinogen Normal MG/DL (0.0-1.0) Urine Leukocyte Esterase 1+ (NEGATIVE) H Urine RBC 15-20 /HPF (0 - 2) H Urine WBC 2-4 /HPF (0 - 2) Urine Squamous Epithelial Cells Few /LPF (NONE/OCC) Urine Bacteria Few /HPF (NONE) Last Vital Signs Date Time Temp Pulse Resp B/P (MAP) Pulse Ox O2 Delivery O2 Flow Rate FiO2 02/28/20 18:48 98.8 81 20 146/100 100 Room Air Status: improved Disposition: HOME, SELF-CARE Condition: Improved Scripts Alprazolam* (XANAX*) 0.25 Mg Tablet 0.25 MG ORAL THREE TIMES A DAY, #8 TAB 0 Refills Prov: Joon Torrez MD 02/28/20 Ondansetron Odt* (ZOFRAN ODT*) 4 Mg Tab.rapdis 4 MG BC EVERY 8 HOURS PRN for Nausea & Vomiting, #6 TAB 1 Refill Prov: Joon Torrez MD 02/28/20 Famotidine* (Pepcid 20mg tablet*) 20 Mg Tablet 20 MG ORAL DAILY, #15 TAB 0 Refills Prov: Joon Torrez MD 02/28/20 Referrals: NON PHYSICIAN (PCP) Joon Torrez MD Feb 28, 2020 16:09
[2020-02-28 16:34] LABS: BASOPHILS % (AUTO) 1.2 % (0.0-2.0); EOSINOPHILS % (AUTO) 1.4 % (0.0-3.0); HEMATOCRIT 44.1 % (37.0-47.0); LYMPHOCYTES % (AUTO) 38.7 % (20.0-45.0); MEAN CORPUSCULAR VOLUME 95 FL (80-99); MONOCYTES % (AUTO) 5.9 % (1.0-10.0); NEUTROPHILS % (AUTO) 52.9 % (45.0-75.0); PLATELET COUNT 310 K/UL (150-450); RED BLOOD COUNT 4.66 M/UL (4.20-5.40); WHITE BLOOD COUNT 8.1 K/UL (4.8-10.8)
[2020-02-28 16:41] LABS: ANION GAP 10 mmol/L (5-15); BLOOD UREA NITROGEN 11 mg/dL (7-18); CALCIUM 9.4 MG/DL (8.5-10.1); CARBON DIOXIDE 27 MMOL/L (21-32); CHLORIDE 104 MMOL/L (98-107); CREATININE 0.9 MG/DL (0.55-1.30); POTASSIUM 3.6 MMOL/L (3.5-5.1); SODIUM 141 MMOL/L (136-145)
[2020-02-28 16:46] LABS: ALANINE AMINOTRANSFERASE 15 U/L (12-78); ALBUMIN/GLOBULIN RATIO 1.1 (1.0-2.7); ALKALINE PHOSPHATASE 66 U/L (46-116); ASPARTATE AMINO TRANSFERASE 16 U/L (15-37); BILIRUBIN,TOTAL 0.4 MG/DL (0.2-1.0)
--- NOTE | 2020-02-28 16:59 | NUR ---
ED Nurse Note: pt still unable to provide urine sample as of now.
--- NOTE | 2020-02-28 17:05 | NUR ---
ED Nurse Note: obtained urine specimen, sent to labs.
[2020-02-28 18:07] LABS: APPEARANCE,URINE CLEAR; BILIRUBIN, URINE NEGATIVE (NEGATIVE); COLOR,URINE YELLOW; GLUCOSE, URINE (UA) NEGATIVE (NEGATIVE); KETONES,URINE 1+ (NEGATIVE); LEUKOCYTE ESTERASE ,URINE 1+ (NEGATIVE); NITRITE,URINE NEGATIVE (NEGATIVE); PH,URINE 5 (4.5-8.0); PROTEIN,URINE NEGATIVE (NEGATIVE); UROBILINOGEN,URINE NORMAL MG/DL (0.0-1.0)
[2020-02-28] MEDS ORDERED: ONDANSETRON ODT4 MG BC (18:35)
[2020-02-28] MEDS ORDERED: FAMOTIDINE20 MG ORAL (18:35)
[2020-02-28] MEDS ORDERED: XANAX0.25 MG ORAL (18:44)
[2020-02-28 18:48] VITALS: BP 146/100
--- NOTE | 2020-02-28 18:48 | NUR ---
ER DISCHARGE NOTE: Pt is cleared to be discharged per ERMD, pt is aox4, on room air, with stable vital signs. pt was given dc and prescription instructions, pt was able to verbalize understanding, pt id band and iv site removed without complications. pt is able to ambulate with steady gait. pt took all belongings.
[2020-02-29] MEDS ORDERED: AUGMENTIN 875-1 EAC1 ORAL (18:58)
[2020-02-29] MEDS ORDERED: PHENERGAN25 M1 ORAL (18:58)
[2020-02-29] MEDS ORDERED: OMEPRAZOLE20 M3 ORAL (18:58)
== END 2020-02-28 18:48 | disposition home or self-care (01) ==
LOC: EMR 15:59
DX: K52.9 Noninfective gastroenteritis and colitis, unspecified (principal); F41.9 Anxiety disorder, unspecified; E86.0 Dehydration; F17.200 Nicotine dependence, unspecified, uncomplicated; Z90.710 Acquired absence of both cervix and uterus; Z87.891 Personal history of nicotine dependence
CPT/HCPCS: 36415; 80053; 81003; 83690; 85025; 96360; Z7502; 99284

== ENCOUNTER 2020-02-29 17:02 | Emergency (ER) | payer MEDICAID ==
[~2020-02-29] VITALS: Ht 170.2 cm; Wt 59.0 kg
[~2020-02-29 17:02] MED LIST changes: +FAMOTIDINE20 MG ORAL; +ONDANSETRON ODT4 MG BC; +XANAX0.25 MG ORAL
--- NOTE | 2020-02-29 17:31 | NUR ---
ED Nurse Note: pt ambulated to ed c/o left toothache, stomach pain, nausea, and anxiety. pt states that she was here yesterday and felt she didnt not get the results she needed.
[2020-02-29 17:32] VITALS: BP 125/91
[2020-02-29 17:58] LABS: BASOPHILS % (AUTO) 1.6 % (0.0-2.0); EOSINOPHILS % (AUTO) 1.3 % (0.0-3.0); HEMATOCRIT 43.1 % (37.0-47.0); HEMOGLOBIN 14.7 G/DL (12.0-16.0); LYMPHOCYTES % (AUTO) 37.4 % (20.0-45.0); MEAN CORPUSCULAR VOLUME 96 FL (80-99); MONOCYTES % (AUTO) 7.7 % (1.0-10.0); PLATELET COUNT 287 K/UL (150-450); RED BLOOD COUNT 4.51 M/UL (4.20-5.40); RED CELL DISTRIBUTION WIDTH 11.7 % (11.6-14.8); WHITE BLOOD COUNT 7.9 K/UL (4.8-10.8)
[2020-02-29] MEDS ORDERED: Augmentin 875mg Tab ORAL ONE (18:00)
[2020-02-29] MEDS ORDERED: Ketorolac 30mg Inj IV ONE (18:00)
--- NOTE | 2020-02-29 18:02 | Diagnostic Imaging Report ---
EXAM: XR Chest, 1 View CLINICAL HISTORY: SOB TECHNIQUE: Frontal view of the chest. COMPARISON: 10/24/15 FINDINGS: Lungs: Bilateral pulmonary hyperinflation. No focal consolidation. Pleural space: No significant abnormality. No pneumothorax. Heart: Stable cardiomediastinal silhouette. Mediastinum: See above. Bones/joints: No acute osseous abnormality. IMPRESSION: No acute cardiopulmonary process.
[2020-02-29 18:09] LABS: ANION GAP 8 mmol/L (5-15); BLOOD UREA NITROGEN 9 mg/dL (7-18); CALCIUM 9.3 MG/DL (8.5-10.1); CARBON DIOXIDE 27 MMOL/L (21-32); CHLORIDE 105 MMOL/L (98-107); CREATININE 0.8 MG/DL (0.55-1.30); POTASSIUM 3.4 MMOL/L (3.5-5.1); SODIUM 140 MMOL/L (136-145)
[2020-02-29 18:15] LABS: ALANINE AMINOTRANSFERASE 15 U/L (12-78); ALBUMIN 3.8 G/DL (3.4-5.0); ALBUMIN/GLOBULIN RATIO 1.1 (1.0-2.7); ALKALINE PHOSPHATASE 62 U/L (46-116); ASPARTATE AMINO TRANSFERASE 17 U/L (15-37); BILIRUBIN,TOTAL 0.5 MG/DL (0.2-1.0)
--- NOTE | 2020-02-29 18:49 | NUR ---
ED Nurse Note: urine sent to lab
--- NOTE | 2020-02-29 18:57 | Emergency Room Report ---
History of Present Illness General Chief Complaint: Flu Like Symptoms Source: Patient (Paz Klein) Present Illness HPI 49-year-old female with no signal past medical history and anxiety was here yesterday was diagnosed with gastroenteritis here again complaining of worsening symptoms. Reports that she has been vomiting few times today without any blood in it and nausea medication has been helping somewhat. Complains of few bouts of nonbloody diarrhea. Diffuse abdominal pain mainly epigastric however nontender. Also complains of several months of tooth infection and how she consulted with her dentist and was told that her symptoms could be secondary to that. Patient complains of loss of taste and smell for the past 3 days. Denies any chest pain shortness of breath. Complains of worsening anxiety reports is helping her. Denies coming in direct contact with: Positive patient. Sitting comfortably with stable vital signs he reports that at home she got really anxious and her heart started palpitating however heart rate is within normal limits. O2 sat within normal limits. Patient is afebrile. Patient does not meet the criteria for rapid covert testing as patient is not going to want any procedure, going to be transferred to a different hospital. Patient also does not meet the criteria for regular call with testing as patient is stable with stable vital signs and can be doing the testing at [facility] The management remains the same as patient needs to self isolate regardless. Patient is presenting with COVID symptoms and needs to self isolate. (Paz Klein) Allergies: Coded Allergies: No Known Allergies (Unverified , 10/29/16) COVID-19 Screening Contact w/high risk pt: No Recent Travel to affected area: No Experienced COVID-19 symptoms?: Yes COVID-19 symptoms experienced: Flu-Like Symptoms COVID-19 Testing performed HAND COMPOSITOR: No (Paz Klein) Patient History Past Medical History: see triage record Past Surgical History: none Pertinent Family History: none Last Menstrual Period: 2004 Now: No Immunizations: UTD Reviewed Nursing Documentation: PMH: Agreed; PSxH: Agreed (Paz Klein) Nursing Documentation-PMH Past Medical History: No History, Except For Hx Cardiac Problems: No (Paz Klein) Review of Systems All Other Systems: negative except mentioned in HPI (Paz Klein) Physical Exam Vital Signs Date Time Temp Pulse Resp B/P (MAP) Pulse Ox O2 Delivery O2 Flow Rate FiO2 02/29/20 17:11 98.6 67 20 125/91 (102) 98 Room Air Sp02 EP Interpretation: reviewed, normal General Appearance: no apparent distress, alert, GCS 15, non-toxic Head: normocephalic, atraumatic Eyes: bilateral eye normal inspection, bilateral eye PERRL ENT: hearing grossly normal, normal pharynx, no angioedema, normal voice Neck: full range of motion, supple/symm/no masses Respiratory: chest non-tender, lungs clear, normal breath sounds, speaking full sentences Cardiovascular #1: regular rate, rhythm, no edema Gastrointestinal: normal bowel sounds, non tender, soft, non-distended, no guarding, no rebound Genitourinary: no CVA tenderness Musculoskeletal: back normal, normal range of motion, no calf tenderness Neurologic: alert, motor strength/tone normal, oriented x3, sensory intact, responsive, speech normal Psychiatric: judgement/insight normal, memory normal, mood/affect normal, no suicidal/homicidal ideation Skin: no rash Lymphatic: no adenopathy (Paz Klein) Medical Decision Making PA Attestation All my diagnosis and treatment plans were reviewed ad discussed with my supervising physician Dr. Sommers (Paz Klein) Diagnostic Impression: Primary Impression: Dental infection Additional Impressions: Suspected 2019 novel coronavirus infection Abdominal pain ER Course 49-year-old female with no signal past medical history and anxiety was here yesterday was diagnosed with gastroenteritis here again complaining of worsening symptoms. Reports that she has been vomiting few times today without any blood in it and nausea medication has been helping somewhat. Complains of few bouts of nonbloody diarrhea. Diffuse abdominal pain mainly epigastric however nontender. Also complains of several months of tooth infection and how she consulted with her dentist and was told that her symptoms could be secondary to that. Patient complains of loss of taste and smell for the past 3 days. Denies any chest pain shortness of breath. Complains of worsening anxiety reports is helping her. Denies coming in direct contact with: Positive patient. Sitting comfortably with stable vital signs he reports that at home she got really anxious and her heart started palpitating however heart rate is within normal limits. O2 sat within normal limits. Patient is afebrile. Patient does not meet the criteria for rapid covert testing as patient is not going to want any procedure, going to be transferred to a different hospital. Patient also does not meet the criteria for regular call with testing as patient is stable with stable vital signs and can be doing the testing at [facility] [address] The management remains the same as patient needs to self isolate regardless. Patient is presenting with COVID symptoms and needs to self isolate. Ddx considered but are not limited to: Gastroenteritis, strep pharyngitis, URI, tonsillitis, peritonsillar abscess, influneza, sinusitis, coronavirus, dental infection Vital signs: are WNL, pt. is afebrile H&PE are most consistent with: Dental infection, suspected coronavirus ORDERS: CBC, CMP, UA, chest x-ray, EKG, troponin, Augmentin, Phenergan, omeprazole, dicyclomine ED INTERVENTIONS: NS bolus, Toradol, Phenergan, Augmentin, Pepcid DISCHARGE: At this time pt. is stable for d/c to home. Will provide printed patient care instructions, and any necessary prescriptions. Care plan and follow up instructions have been discussed with the patient prior to discharge. Patient take medication as directed, follow primary doctor, go to [address] for cover testing if interested. Patient still needs to self isolate at this time as presented with COVID symptoms. If worsening symptoms respiratory distress return to emergency room. At this time patient does not meet criteria for cover testing as patient is not going to be admitted. (Paz Klein) EKG Diagnostic Results Rate: bradycardiac Rhythm: other - sue ST Segments: no acute changes Other Impression No acute ST changes (Paz Klein) Chest X-Ray Diagnostic Results Chest X-Ray Diagnostic Results : Chest X-Ray Ordered: Yes # of Views/Limited/Complete: 1 View Indication: Other EP Interpretation: Yes BRADLEY Xray: Interpretation reviewed, by supervising MD, and agrees with findings. Interpretation: no consolidation, no effusion, no pneumothorax Impression: No acute disease Electronically Signed by: Paz Grimaldo PA-C (Paz Klein) Last Vital Signs Date Time Temp Pulse Resp B/P (MAP) Pulse Ox O2 Delivery O2 Flow Rate FiO2 02/29/20 18:34 98.6 02/29/20 17:32 67 20 125/91 98 Room Air (Paz Klein) Disposition: HOME, SELF-CARE Condition: Stable Scripts Omeprazole (OMEPRAZOLE) 20 Mg Tablet.dr 20 MG ORAL DAILY, #30 TAB Prov: Paz Klein 02/29/20 Promethazine Hcl* (PHENERGAN*) 25 Mg Tablet 25 MG ORAL Q8HR, #15 TAB 0 Refills Prov: Paz Klein 02/29/20 Amoxicillin/Potassium Clav 875-125* (AUGMENTIN 875-125 TABLET*) 1 Each Tablet 1 TAB ORAL TWICE A DAY for 10 Days, #20 TAB Prov: Paz Klein 02/29/20 Referrals: NON PHYSICIAN (PCP) Patient Instructions: Abdominal Pain, Adult, Dental Pain, [id number] Additional Instructions: Patient take medication as directed, follow primary doctor, go to [address] for cover testing if interested. Patient still needs to self isolate at this time as presented with COVID symptoms. If worsening symptoms respiratory distress return to emergency room. At this time patient does not meet criteria for cover testing as patient is not going to be admitted. Paz Klein Feb 29, 2020 18:57 Giovani Sommers MD Feb 29, 2020 20:15
[2020-02-29] MEDS ORDERED: PHENERGAN25 M1 ORAL (18:58)
[2020-02-29] MEDS ORDERED: AUGMENTIN 875-1 EAC1 ORAL (18:58)
[2020-02-29] MEDS ORDERED: OMEPRAZOLE20 M3 ORAL (18:58)
[2020-02-29 19:01] LABS: APPEARANCE,URINE CLEAR; BILIRUBIN, URINE NEGATIVE (NEGATIVE); COLOR,URINE PALE YELLOW; GLUCOSE, URINE (UA) NEGATIVE (NEGATIVE); KETONES,URINE NEGATIVE (NEGATIVE); LEUKOCYTE ESTERASE ,URINE NEGATIVE (NEGATIVE); NITRITE,URINE NEGATIVE (NEGATIVE); PH,URINE 6 (4.5-8.0); PROTEIN,URINE NEGATIVE (NEGATIVE); UROBILINOGEN,URINE NORMAL MG/DL (0.0-1.0)
[2020-02-29 19:22] VITALS: BP 130/82
--- NOTE | 2020-02-29 19:22 | NUR ---
ED Nurse Note: Pt cleared by health care Provider for discharge. DC instructions/prescription was given and explained to pt and verbalized understanding of teachings. Instructed pt to follow up with primary care physican within one week. All medical deviecs such as ID band and IV removed; IV site clean and bandaged. Pt is AAO x4, ambulatory and left with all personal belongings.
== END 2020-02-29 19:22 | disposition home or self-care (01) ==
LOC: EMR 17:28
DX: K08.89 Other specified disorders of teeth and supporting structures (principal); R10.9 Unspecified abdominal pain; F41.9 Anxiety disorder, unspecified; Z90.710 Acquired absence of both cervix and uterus; R00.1 Bradycardia, unspecified; R06.02 Shortness of breath
CPT/HCPCS: 36415; 71045; 80053; 81003; 83690; 84484; 85025; 93005; 96361; 96374; 96375; J1885; J2550; J7030; S0028; Z7502; 99284